=== PATIENT | male | born 1990 | race Caucasian/White ===

== ENCOUNTER 2020-03-20 16:22 | Emergency (ER) | payer MEDICAID ==
[~2020-03-20] VITALS: Ht 175.3 cm; Wt 83.9 kg
[2020-03-20 16:55] VITALS: Ht 175.3 cm; Wt 83.9 kg
[2020-03-20 17:41] LABS: BASOPHIL % 0.6 % (0.2-1.5); PLATELET COUNT 260 x10^3mcL (152-348); RED CELL DISTRIBUTION WIDTH 13.5 % (12.1-16.2)
[2020-03-20 17:54] LABS: CALCIUM 8.2 mg/dL (8.5-10.1); CHLORIDE SERUM 101 mmol/L (98-107); GFR1 > 60 mL/min; GLUCOSE SERUM 101 mg/dL (74-106); POTASSIUM SERUM 3.4 mmol/L (3.5-5.1); SODIUM SERUM 140 mmol/L (136-145)
[2020-03-20 17:58] LABS: ALKALINE PHOSPHATASE 54 U/L (46-116); ALT/SGPT 70 U/L (16-63); AST/SGOT 39 U/L (15-37); BILIRUBIN TOTAL 0.48 mg/dL (0.20-1.00); TOTAL PROTEIN, SERUM 7.1 g/dL (6.4-8.2)
[2020-03-20 20:00] VITALS: BP 133/93
[2020-03-20 20:20] LABS: AMPHETAMINE QUAL UR NONE DETECTED (See below)
== END 2020-03-20 20:01 | disposition left against medical advice (07) ==
LOC: ED 16:22
PROVIDERS: Emergency Medicine
DX: F10.239 Alcohol dependence with withdrawal, unspecified (principal); Z20.828 Contact with and (suspected) exposure to other viral communicable diseases
CPT/HCPCS: J2060; J3411; J3490; J7030